=== PATIENT | female | born 1980 | race Caucasian/White ===

== ENCOUNTER 2021-06-01 20:36 | Inpatient (IN) | payer MEDICAID, OTHER ==
[~2021-06-01] VITALS: Ht 162.6 cm; Wt 56.2 kg
[2021-06-01] MEDS ORDERED: AMLO10TA80 MT (21:00)
[2021-06-01] MEDS ORDERED: ATOR40TA70 MT (21:03)
[2021-06-01] MEDS ORDERED: ONDANSETRON HCL 4MG/2ML INJ IV STA (21:52)
[2021-06-01 22:33] LABS: BASOPHILS % 0.2 % (0.0-2.0); EOSINOPHILS % 3.2 % (0.0-5.0); HEMATOCRIT. 37.4 % (36.0-48.0); HEMOGLOBIN. 12.5 g/dL (12.0-16.0); LYMPHOCYTES % 17.5 % (20.0-50.0); MEAN CORPUSCULAR HEMOGLOBIN 32.6 pg (28.0-32.0); MEAN PLATELET VOLUME 8.3 fl (7.4-10.4); MONOCYTES % 6.5 % (2.0-8.0); NEUTROPHILS % 72.6 % (40.0-76.0); PLATELET 274 x1000/uL (130-400); RED BLOOD CELL COUNT 3.85 mill/uL (4.2-5.4)
[2021-06-01 22:41] LABS: CHLORIDE 103 mEq/L (98-107)
[2021-06-01 22:48] LABS: HCG SCREEN NEGATIVE
[2021-06-01] MEDS ORDERED: INSULIN REGULAR (HUMULIN R) 300UNITS/3ML VIAL IV NR (23:45)
[2021-06-01] MEDS ORDERED: CALCIUM CHLORIDE 1GM/10ML SYR IV NR (23:45)
[2021-06-01] MEDS ORDERED: SODIUM BICARBONATE 8.4% 1 MEQ/ML 50ML SYR IV NR (23:45)
[2021-06-01] MEDS ORDERED: DEXTROSE 50% WATER 50ML SYRINGE IV NR (23:45)
[2021-06-02] MEDS ORDERED: ONDANSETRON HCL 4MG/2ML INJ IV PRN (07:00)
[2021-06-02] MEDS ORDERED: ACETAMINOPHEN 325MG TABLET PO PRN (07:00)
[2021-06-02] MEDS ORDERED: DIPHENHYDRAMINE 50MG/ML VIAL IV PRN (07:00)
[2021-06-02] MEDS ORDERED: CLONIDINE 0.1MG TABLET PO PRN (07:00)
[2021-06-02] MEDS ORDERED: HYDROCODONE/ACETAMINOPHEN 5/325MG TABLET PO PRN (07:00)
[2021-06-02] MEDS ORDERED: SODIUM POLYSTYRENE SULFONATE 15 G/60 ML BOT PO NR (07:15)
[2021-06-02] MEDS ORDERED: NALOXONE HCL 0.4MG/ML VIAL IV PRN (07:15)
[2021-06-02] MEDS: AMLODIPINE 10MG TABLET PO SCH ×2 (07:39→09:00)
[2021-06-02 08:33] VITALS: BP 133/81
[2021-06-02] MEDS ORDERED: AMLODIPINE 10MG TABLET PO SCH (09:30)
[2021-06-02] MEDS: ATORVASTATIN CALCIUM 40MG TABLET PO SCH (11:21)
[2021-06-02 11:56] LABS: HEPATITIS B SURFACE ANTIGEN NEGATIVE
[2021-06-02 12:00] VITALS: BP 139/78
[2021-06-02 16:00] VITALS: BP 124/78
[2021-06-02 20:00] VITALS: BP 132/70
[2021-06-03] VITALS: BP 123/72
[2021-06-03 04:00] VITALS: BP 131/80
[2021-06-03 07:05] LABS: BASOPHILS % 0.3 % (0.0-2.0); EOSINOPHILS % 2.6 % (0.0-5.0); HEMATOCRIT. 34.7 % (36.0-48.0); HEMOGLOBIN. 11.5 g/dL (12.0-16.0); LYMPHOCYTES % 13.3 % (20.0-50.0); MEAN CORPUSCULAR HEMOGLOBIN 31.7 pg (28.0-32.0); MEAN CORPUSCULAR VOLUME 95.6 fL (81.0-99.0); MEAN PLATELET VOLUME 8.3 fl (7.4-10.4); MONOCYTES % 5.5 % (2.0-8.0); NEUTROPHILS % 78.3 % (40.0-76.0); PLATELET 235 x1000/uL (130-400); RED BLOOD CELL COUNT 3.63 mill/uL (4.2-5.4); RED CELL DISTRIBUTION WIDTH 17.7 % (11.6-14.6)
[2021-06-03 07:28] LABS: CHLORIDE 105 mEq/L (98-107)
[2021-06-03 07:30] LABS: PHOSPHORUS 4.8 mg/dL (2.5-4.9)
[2021-06-03 08:00] VITALS: BP 155/82
[2021-06-03] MEDS: AMLODIPINE 10MG TABLET PO SCH (09:21)
[2021-06-03] MEDS: ATORVASTATIN CALCIUM 40MG TABLET PO SCH (09:21)
[2021-06-03 11:24] VITALS: BP 136/62
== END 2021-06-03 11:35 | disposition home or self-care (01) | DRG 291 ==
LOC: ER 20:36 → MICUSO 06-02 01:12 → 7WST 06-02 08:38
PROVIDERS: ADMIT Hospitalist; ATTEND Hospitalist
PROC: 5A1D70Z Performance of Urinary Filtration, Intermittent, Less than 6 Hours Per Day (ICD-10-PCS; principal; 2021-06-02)
PROC: 5A1D70Z Performance of Urinary Filtration, Intermittent, Less than 6 Hours Per Day (ICD-10-PCS; 2021-06-03)
DX: I13.2 Hypertensive heart and chronic kidney disease with heart failure and with stage 5 chronic kidney disease, or end stage renal disease (principal); N18.6 End stage renal disease; I50.33 Acute on chronic diastolic (congestive) heart failure; J96.91 Respiratory failure, unspecified with hypoxia; E87.5 Hyperkalemia; E78.5 Hyperlipidemia, unspecified; E21.1 Secondary hyperparathyroidism, not elsewhere classified; Z99.2 Dependence on renal dialysis; Z79.899 Other long term (current) drug therapy; Z82.49 Family history of ischemic heart disease and other diseases of the circulatory system
CPT/HCPCS: 36415; 71045; 80048; 80053; 83735; 84100; 84484; 84703; 85025; 86705; 86709; 86803; 87340; 93005; 93970; 99291; J1815; J2405; J3490